=== PATIENT | female | born 1940 | race Caucasian/White ===

== ENCOUNTER 2018-04-22 12:39 | Day surgery (SDC) | payer MEDICARE, BC ==
[~2018-04-22] VITALS: Ht 175.3 cm; Wt 86.0 kg
[2018-04-22] MEDS ORDERED: MELO7.5 (13:54)
[2018-04-22] MEDS ORDERED: TAMO10 PO (13:54)
[2018-04-22] MEDS ORDERED: BUSP5 PO (13:54)
[2018-04-22] MEDS ORDERED: LOSA50 PO (13:54)
[2018-04-22] MEDS ORDERED: CETI5 PO (13:55)
[2018-04-22] MEDS ORDERED: GLUC500 PO (13:55)
[2018-04-22] MEDS ORDERED: VIT1CAPS12 (13:55)
[2018-04-22] MEDS ORDERED: Omeprazole20 M1 (13:56)
[2018-04-22] MEDS ORDERED: Aspir 8181 MG PO (13:56)
[2018-04-22] MEDS ORDERED: METAMUCIL0.4 GM PO (13:56)
[2018-04-22] MEDS ORDERED: Vitamin B-1250 MCG (13:56)
== END 2018-04-22 14:53 | disposition home or self-care (01) ==
LOC: ORSCSDS 12:39
PROVIDERS: Ophthalmology
PROC: 08RK3JZ Replacement of Left Lens with Synthetic Substitute, Percutaneous Approach (ICD-10-PCS; principal; 2018-04-22 14:30)
DX: H25.12 Age-related nuclear cataract, left eye (principal); I10 Essential (primary) hypertension; K21.9 Gastro-esophageal reflux disease without esophagitis; J45.909 Unspecified asthma, uncomplicated; Z79.82 Long term (current) use of aspirin; Z79.899 Other long term (current) drug therapy
CPT/HCPCS: J2250; J3010; J7040; V2632